=== PATIENT | male | born 1975 | race African-American/Black ===

== ENCOUNTER → 2019-07-11 | Outpatient (CLI) | payer OTHER | LOC: COL.RAD 10:11 | DX: Z02.71 Encounter for disability determination (principal); S22.20XA Unspecified fracture of sternum, initial encounter for closed fracture ==

== ENCOUNTER → 2021-01-01 | Outpatient (CLI) | payer OTHER | LOC: COL.RAD 08:45 | DX: M50.30 Other cervical disc degeneration, unspecified cervical region (principal) ==